=== PATIENT | male | born 1975 | race Caucasian/White ===

== ENCOUNTER → 2017-01-28 | Outpatient (CLI) | payer OTHER ==
[~2017-01-28] MED LIST: DOCU10ELUD PO; LEXAPRO PO; NEUR600T PO; PERCOCET PO; PROTPAK PO; TRAMADOL PO
--- NOTE | 2017-01-28 17:33 | REP ---
LEFT SHOULDER MRI: 01/28/2017: Clinical history: Shoulder pain, possible rotator cuff tear. Comparison: MRI 11/23/2014. Technique: Sagittal T2 fat-suppressed with axial T2 medic, T2 fat suppressed and coronal T1 and T2 fat suppressed sequences. The last sequence, a sagittal T2 was diminished by motion which could not be accommodated due to the patient's pain. Findings: AC joint hypertrophic changes are again noted and these indent the musculotendinous junction of the rotator cuff. There is fluid in that joint space. There is also a peripheral acromial spur. There is bursal surface fraying and subacromial and subdeltoid bursal fluid noted. There is a partial tear of the supraspinatus tendon over its insertional footprint on the greater tuberosity humeral head anteriorly. No full-thickness tear, retraction of the tendon nor significant atrophy of the muscle belly. The coracoclavicular and coracohumeral ligaments are intact. The biceps tendon appears to be displaced from the bicipital groove and is seen coursing anterior and medial to the humeral head. Biceps labral junction appears grossly intact. There is abnormal signal in the superior labrum, particularly anterior and posterior margins. This is quite similar to previous study suggesting labral tear and degeneration. I do not see progressive change there. There is fluid in the subcoracoid bursa. The bony coracoid was intact. Anterior labrum with some degeneration on the axial images. The subscapularis shows significant thinning tendinopathy, tendonitis and fluid along its course. I do not see a full-thickness tear or significant muscle atrophy. The infraspinatus and teres minor muscles and tendons grossly intact. The spinal glenoid notch was intact without obvious mass or fluid collection. Impression: 1. Displacement of the biceps tendon medially from the bicipital groove without a tear of the proximal tendon or disruption of the biceps labral complex. 2. Superior labral tear again suggested although not grossly progressive compared to the previous study. 3. Subacromial subdeltoid bursal fluid with partial tear of the supraspinatus at its insertional footprint over the greater tuberosity but no full-thickness tear, retraction of the tendon or atrophy of the muscle belly neck significant tendinopathy and tendonitis or partial tearing of the subscapularis which has thinned. The infraspinatus and teres minor tendons posteriorly were intact. 4. Coracoclavicular and coracohumeral ligaments intact. Signed by Lee Kaiser MD 01/29/2017 05:47 P
== END ==
LOC: M RAD 13:52
DX: M25.512 Pain in left shoulder (principal)